=== PATIENT | female | born 1990 | race Two or more races ===

== ENCOUNTER 2024-02-15 12:20 | Outpatient (CLI) | payer OTHER ==
[~2024-02-15 12:20] MED LIST: LABETALOL HCL100 MG PO; PEPCID AC20 MG PO; PRENA1 TRUE CO1 EACH PO; PROCARDIA XL90 MG PO
== END 2024-02-15 13:27 | disposition home or self-care (01) ==
LOC: NST 12:20
PROVIDERS: ATTEND Emergency Medicine
DX: Z34.83 Encounter for supervision of other normal pregnancy, third trimester (principal)

== ENCOUNTER 2024-02-15 19:06 | Inpatient (IN) | payer OTHER ==
[~2024-02-15] VITALS: Ht 167.6 cm; Wt 83.5 kg
[2024-02-15 18:40] VITALS: BP 135/89
[2024-02-15] MEDS ORDERED: MAGNESIUM SULFATE IN WATER 0.04 GM/ML IV.SOLN IV ONE (20:07)
[2024-02-15] MEDS ORDERED: MAGNESIUM SULFATE IN WATER 4 GM/100 ML PIGGYBACK IV ONE (20:15)
[2024-02-15] MEDS ORDERED: RINGERS SOLUTION,LACTATED 1,000 ML IV SCH (20:15)
[2024-02-15] MEDS ORDERED: MAGNESIUM SULFATE IN WATER 500 ML IV SCH (20:15)
[2024-02-15 20:53] LABS: HEMATOCRIT 37.4 % (36.0-45.00); HEMOGLOBIN 12.9 g/dL (12.0-15.00); MEAN CORPUSCULAR HEMOGLOBIN 31.8 pg (27.00-32.0); MEAN CORPUSCULAR HGB CONC 34.5 g/dl (32.0-36.0); PLATELET COUNT 209 K/uL (150-450); RED BLOOD COUNT 4.06 M/uL (4.00-6.00); RED CELL DISTRIBUTION WIDTH 12.7 % (11.5-14.5)
[2024-02-15] MEDS ORDERED: INDOMETHACIN 50 MG CAPSULE PO ONE (21:00)
[2024-02-15] MEDS ORDERED: BETAMETHASONE ACETATE,SOD PHOS 30 MG/5 ML ML IU ONE ×2 (21:00)
[2024-02-15] MEDS ORDERED: INDOMETHACIN 25 MG CAPSULE PO SCH (21:00)
[2024-02-15 21:15] LABS: INR 0.97; PARTIAL THROMBOPLASTIN TIME 30.1 SECONDS (22.0-34.0); PROTHROMBIN TIME 10.6 SECONDS (9.0-11.5)
[2024-02-15] MEDS ORDERED: MORPHINE SULFATE 4 MG/ML CARTRIDGE IV PRN (21:15)
[2024-02-15] MEDS ORDERED: TERBUTALINE SULFATE 1 MG/ML AMPUL ONE (21:55)
[2024-02-15] MEDS ORDERED: ERYTHROMYCIN BASE 1 GM TUBE OP ONE ×2 (22:04→22:11)
[2024-02-15] MEDS ORDERED: OXYTOCIN 10 UNITS/ML VIAL ONE ×2 (22:04→22:11)
[2024-02-15] MEDS ORDERED: TERBUTALINE SULFATE 1 MG/ML AMPUL SUBCUTANEO ONE (22:30)
[2024-02-15] MEDS ORDERED: MORPHINE SULFATE 4 MG/ML VIAL IV SCH (22:55)
[2024-02-15] MEDS ORDERED: OXYTOCIN 1,000 ML IV ONE (23:00)
[2024-02-15 23:40] LABS: URINE APPEARANCE Cloudy; URINE BILIRRUBIN Negative (NEGATIVE); URINE BLOOD Large; URINE COLOR Orange; URINE GLUCOSE Negative (NEGATIVE); URINE KETONE Trace (NEGATIVE); URINE LEUKOCYTE Trace; URINE NITRATE Negative; URINE PROTEIN 30 (NEGATIVE); URINE UROBILINOGEN 0.2 E.U./dl
[2024-02-15 23:44] LABS: URINE BACTERIA 118.4 uL (0.0-1933); URINE EPITHELIAL CELLS 17.2 uL (0.0-38.8); URINE RBC 1477.2 uL (0.0-20.8); URINE WBC 52.5 uL (0.0-23.2)
[2024-02-16] MEDS ORDERED: KETOROLAC TROMETHAMINE 30 MG VIAL IV SCH
[2024-02-16 03:01] VITALS: BP 134/82; O2SAT 97
[2024-02-16] MEDS ORDERED: ACETAMINOPHEN 500 MG GEL..CAP PO SCH (06:00)
[2024-02-16 06:54] LABS: HEMATOCRIT 34.8 % (36.0-45.00); HEMOGLOBIN 12.4 g/dL (12.0-15.00); MEAN CELL VOLUME 91.4 fL (80.00-100.00); MEAN CORPUSCULAR HEMOGLOBIN 32.5 pg (27.00-32.0); MEAN CORPUSCULAR HGB CONC 35.6 g/dl (32.0-36.0); PLATELET COUNT 214 K/uL (150-450); RED BLOOD COUNT 3.81 M/uL (4.00-6.00); RED CELL DISTRIBUTION WIDTH 12.5 % (11.5-14.5)
[2024-02-16] MEDS ORDERED: GABAPENTIN 300 MG CAPSULE PO SCH (09:00)
[2024-02-16] MEDS ORDERED: SIMETHICONE 125 MG CAPSULE PO SCH (09:00)
[2024-02-16] MEDS ORDERED: DOCUSATE SODIUM 100MG CAP PO SCH (09:00)
[2024-02-16] MEDS ORDERED: PNV,CALCIUM 72/IRON/FOLIC ACID 1 TAB TABLET PO SCH (09:00)
[2024-02-16 09:23] VITALS: BP 119/92
[2024-02-16] MEDS ORDERED: IBUprofen 600 MG TABLET PO SCH (12:00)
[2024-02-16 16:04] VITALS: BP 137/88; O2SAT 99
[2024-02-16 20:00] VITALS: BP 124/78
[2024-02-17 01:03] VITALS: BP 132/80; O2SAT 97
[2024-02-17 09:00] VITALS: BP 133/88
== END 2024-02-17 19:01 | disposition home or self-care (01) | DRG 786 ==
LOC: OB/GYN 19:06 → LDR 19:06 → OB/GYN 02-16 00:04
PROVIDERS: ADMIT Obstetrics & Gynecology Gynecology; ATTEND Obstetrics & Gynecology Gynecology
PROC: 4A1HXCZ Monitoring of Products of Conception, Cardiac Rate, External Approach (ICD-10-PCS; 2024-02-15)
PROC: 10D00Z1 Extraction of Products of Conception, Low, Open Approach (ICD-10-PCS; principal; 2024-02-15 22:00)
DX: O45.8X3 Other premature separation of placenta, third trimester (principal); O60.14X0 Preterm labor third trimester with preterm delivery third trimester, not applicable or unspecified; Z3A.29 29 weeks gestation of pregnancy; Z37.0 Single live birth; Z20.822 Contact with and (suspected) exposure to COVID-19

== ENCOUNTER 2024-05-12 20:56 | Emergency (ER) | payer OTHER ==
[~2024-05-12] VITALS: Ht 165.1 cm; Wt 77.6 kg
[2024-05-12 21:42] LABS: HEMATOCRIT 34.1 % (36.0-45.00); HEMOGLOBIN 12.2 g/dL (12.0-15.00); MEAN CELL VOLUME 86.6 fL (80.00-100.00); MEAN CORPUSCULAR HGB CONC 35.7 g/dl (32.0-36.0); PLATELET COUNT 243 K/uL (150-450); RED BLOOD COUNT 3.94 M/uL (4.00-6.00); RED CELL DISTRIBUTION WIDTH 13.1 % (11.5-14.5)
[2024-05-12] MEDS ORDERED: cloNIDine HCL 0.2 MG TABLET PO ONE (21:45)
[2024-05-12 22:01] LABS: CALCIUM 8.6 mg/dL (8.5-10.1); CREATININE SERUM 0.85 mg/dL (0.55-1.02); GFR 76.56; POTASSIUM 3.2 mEq/L (3.5-5.1)
[2024-05-13 01:41] LABS: HEMATOCRIT 31.6 % (36.0-45.00); HEMOGLOBIN 11.1 g/dL (12.0-15.00); MEAN CELL VOLUME 87.3 fL (80.00-100.00); MEAN CORPUSCULAR HEMOGLOBIN 30.5 pg (27.00-32.0); PLATELET COUNT 295 K/uL (150-450); RED BLOOD COUNT 3.62 M/uL (4.00-6.00); RED CELL DISTRIBUTION WIDTH 13.2 % (11.5-14.5)
[2024-05-13 03:20] LABS: PH,URINE 5.5 (5.0-8.0); URINE APPEARANCE Cloudy; URINE BILIRRUBIN Negative (NEGATIVE); URINE BLOOD Large; URINE COLOR Yellow; URINE GLUCOSE Negative (NEGATIVE); URINE KETONE Negative (NEGATIVE); URINE LEUKOCYTE Trace; URINE NITRATE Negative; URINE PROTEIN Trace (NEGATIVE)
[2024-05-13 03:24] LABS: URINE BACTERIA 103.3 uL (0.0-1933); URINE EPITHELIAL CELLS 6.1 uL (0.0-38.8); URINE RBC 7099.1 uL (0.0-20.8); URINE WBC 20.4 uL (0.0-23.2)
[2024-05-13 03:42] LABS: URINE CAST 1.22 uL (0.0-1.40)
== END 2024-05-13 04:04 ==
LOC: ER 20:58
PROVIDERS: Emergency Medicine; General Practice
DX: O72.2 Delayed and secondary postpartum hemorrhage (principal); D25.9 Leiomyoma of uterus, unspecified; I10 Essential (primary) hypertension